=== PATIENT | male | born 1940 | race Caucasian/White ===

== ENCOUNTER 2017-08-19 06:43 | Day surgery (SDC) | payer MEDICARE, BC ==
[2017-08-19] MEDS ORDERED: LIDOCAINE 1% MPF 100MG/10ML STERILE-PAK AMPULE IV ONE (06:44)
[2017-08-19] MEDS ORDERED: EPINEPHRINE 1 MG/ML AMPUL SQ ONE (06:44)
[2017-08-19] MEDS ORDERED: LIDOCAINE 2% MDV (20MG/ML) 20ML VIAL IV ONE ×2 (06:44)
[2017-08-19] MEDS ORDERED: TETRACAINE HCL 0.5% 15 ML OPTH BTL OPTH ONE (06:44)
[2017-08-19] MEDS ORDERED: PROPOFOL 10 MG/ML VIAL IV ONE (06:44)
[2017-08-19] MEDS ORDERED: CIPROFLOXACIN HCL 0.0015 GM, PHENYLEPHRINE HCL 0.05 GM, KETOROLAC TROMETHAMINE 0.000625 GM MC ONE ×5 (10:15)
--- NOTE | 2017-08-19 18:22 | Operative Note ---
DATE OF PROCEDURE: 08/19/17. PREOPERATIVE DIAGNOSIS: Nuclear sclerotic and cortical cataract, left eye. POSTOPERATIVE DIAGNOSIS: Nuclear sclerotic and cortical cataract, left eye. OPERATION: Phacoemulsification of cataractous lens with implantation of intraocular lens. LENS IMPLANT USED: Nick Model PCB00 + 21.5 diopters. COMPLICATIONS: None. PROCEDURE IN DETAIL: Following a retrobulbar and facial block, the patient was prepped and draped in the usual fashion for eye surgery. A lid speculum was placed in the left eye after which a 2.4 mm tunnel wound was placed at the temporal limbus and dissected into clear cornea. A paracentesis was placed at 2 o'clock hours to the left and right of the initial incision and the chamber deepened with Viscoelastic. The keratome was then used to enter the anterior chamber after which the continuous circular capsulorrhexis was accomplished without difficulty using a bent needle and a Utrata forceps. Hydrodissection and hydrodelineation of the lens was performed after which the nucleus of the lens was removed using the Phaco handpiece in the [id number] technique. The residual cortical material was irrigated and aspirated from the eye after which the bag and chamber were re-examined. The bag was re-inflated with Viscoelastic and the intraocular lens injected into the capsular bag where it centered well. The Viscoelastic was then copiously irrigated and aspirated from the eye after which the temporal tunnel wound and paracentesis were hydrated and the wounds were examined. They were noted to be watertight. The lid speculum was removed from the eye and the eye patched and shielded. The patient was transferred to the recovery room in satisfactory condition and given an appointment to be reexamined in the clinic later today or as directed by Dr. Killian. JOB NUMBER: [id number] MTDD
== END 2017-08-19 09:36 | disposition home or self-care (01) ==
LOC: SUR 06:43
PROVIDERS: ATTEND Ophthalmology
DX: H25.12 Age-related nuclear cataract, left eye (principal)
CPT/HCPCS: J0171; J3490

== ENCOUNTER 2017-09-02 07:48 | Day surgery (SDC) | payer MEDICARE, BC ==
[2017-09-02] MEDS ORDERED: LIDOCAINE 1% MPF 100MG/10ML STERILE-PAK AMPULE IV ONE (07:49)
[2017-09-02] MEDS ORDERED: PROPOFOL 10 MG/ML VIAL IV ONE (07:49)
[2017-09-02] MEDS ORDERED: EPINEPHRINE 1 MG/ML AMPUL SQ ONE (07:49)
[2017-09-02] MEDS ORDERED: LIDOCAINE 2% MDV (20MG/ML) 20ML VIAL IV ONE ×2 (07:49)
[2017-09-02] MEDS ORDERED: TETRACAINE HCL 0.5% 15 ML OPTH BTL OPTH ONE (07:49)
[2017-09-02] MEDS ORDERED: NEOMYCIN/POLY./DEXAM OPTH OINT OPTH ONE (07:49)
[2017-09-02] MEDS ORDERED: TETRACAINE HCL 0.5% OPTH 2ML SOLU OPTH ONE (07:49)
[2017-09-02] MEDS ORDERED: CIPROFLOXACIN HCL 0.0015 GM, PHENYLEPHRINE HCL 0.05 GM, KETOROLAC TROMETHAMINE 0.000625 GM MC ONE ×5 (11:30)
--- NOTE | 2017-09-03 06:37 | OP NOTE CHAMES ---
DATE OF PROCEDURE: 09/02/2017. PREOPERATIVE DIAGNOSIS: Nuclear sclerotic cataract, right eye. POSTOPERATIVE DIAGNOSIS: Nuclear sclerotic cataract, right eye. OPERATION: Phacoemulsification of cataractous lens with implantation of intraocular lens. LENS IMPLANT USED: Nick Model PCB00 + 21.0 diopters. COMPLICATIONS: None. PROCEDURE IN DETAIL: Following a retrobulbar and facial block, the patient was prepped and draped in the usual fashion for eye surgery. A lid speculum was placed in the right eye after which a 2.4 mm tunnel wound was placed at the temporal limbus and dissected into clear cornea. A paracentesis was placed at 2 oclock hours to the left and right of the initial incision and the chamber deepened with Viscoelastic. The keratome was then used to enter the anterior chamber after which the continuous circular capsulorrhexis was accomplished without difficulty using a bent needle and a Utrata forceps. Hydrodissection and hydrodelineation of the lens was performed after which the nucleus of the lens was removed using the Phaco handpiece in the [id number] technique. The residual cortical material was irrigated and aspirated from the eye after which the bag and chamber were re-examined. The bag was re-inflated with Viscoelastic and the intraocular lens injected into the capsular bag where it centered well. The Viscoelastic was then copiously irrigated and aspirated from the eye after which the temporal tunnel wound and paracentesis were hydrated and the wounds were examined. They were noted to be watertight. The lid speculum was removed from the eye and the eye patched and shielded. The patient was transferred to the recovery room in satisfactory condition and given an appointment to be reexamined in the clinic later today or as directed by Dr. Killian. JOB NUMBER: [id number] [facility]
== END 2017-09-02 10:35 | disposition home or self-care (01) ==
LOC: SUR 07:48
PROVIDERS: ATTEND Ophthalmology
DX: H25.11 Age-related nuclear cataract, right eye (principal)
CPT/HCPCS: J0171; J3490

== ENCOUNTER 2018-05-03 06:09 | Day surgery (SDC) | payer MEDICARE, BC ==
[~2018-05-03 06:09] MED LIST: ACETAMINOPHEN 1,000 MG/100 ML BTL IV ONE; CEFAZOLIN 2 Gram 2 GM/50 ML BAG IVPB ONE
[2018-05-03] MEDS ORDERED: LIDOCAINE 2% MDV (20MG/ML) 20ML VIAL IV ONE (06:10)
[2018-05-03] MEDS ORDERED: MIDAZOLAM HCL 2MG/2ML VIAL IV ONE (06:10)
[2018-05-03] MEDS ORDERED: DEXAMETHASONE 4 MG/ML 1ML VIAL IVP ONE (06:10)
[2018-05-03] MEDS ORDERED: ONDANSETRON HCL IV 4 MG/2 ML VIAL IVP ONE (06:10)
[2018-05-03] MEDS ORDERED: PROPOFOL 10 MG/ML VIAL IV ONE (06:10)
[2018-05-03] MEDS ORDERED: EPHEDRINE SULFATE 50 MG/ML ML IV ONE (06:10)
[2018-05-03] MEDS ORDERED: ATROPINE SULFATE 0.4 MG/ML 20ML IVP ONE (06:10)
[2018-05-03] MEDS ORDERED: SEVOFLURANE 250 ML INH ONE (06:10)
[2018-05-03] MEDS ORDERED: ROPIVACAINE HCL (NAROPIN) /PF 5MG/ML 20ML VIAL IV ONE (06:10)
[2018-05-03] MEDS ORDERED: FENTANYL PF 100MCG/2ML VIAL IV ONE (06:10)
--- NOTE | 2018-05-04 12:31 | Operative Note ---
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 OPERATION: Hemiarthroplasty of the left thumb. DESCRIPTION OF PROCEDURE: This 77-year-old male was taken to the operating room and placed in the supine position on the operating room table. General anesthesia was induced and the left upper extremity was elevated. It was prepped with Hibiclens and draped in the usual sterile fashion. It was exsanguinated and the tourniquet inflated to 250 mmHg. An incision was made on the dorsal surface of the 1st metacarpal dissecting down to approximately 1.5 cm from the tip of the radial styloid. Dissection was carried down through the skin and subcutaneous tissue. A branch of the radial nerve was identified and retracted in a dorsal direction. The extensor was retracted palmarly and an incision was made in the periosteum and joint capsule of the trapezial metacarpal joint. Dissection was carried down through the periosteum to the bone and subperiosteal elevation as carried out circumferentially around the base of the 1st metacarpal. This allowed us to free the bone and to move it freely out of the way. We checked the alignment of a K-wire placed in the metacarpal to make sure we had appropriate alignment. Subsequently, the cutting guide was placed and approximately 3-4 mm cut was made on the proximal end of the 1st metacarpal using the guide. A wafer of bone was removed. We were then able to retract this safely out of the way. We placed a guide, first the small and then the medium over the trapezium. The small seemed slightly too small but the medium seemed too large and because of the sloping of his trapezium, I was worried about the bone on the dorsal surface. Therefore, we medialized the hole very slightly to make the socket in the trapezium slightly more medial. We elected to use the small. Subsequently the reamer was used to ream the bone. The image intensifier had been used to check the position and alignment of the guide pin in the trapezium prior to reaming. We then removed osteophytes which were present medially on the trapezium and then medially on the metacarpal as well. Very large osteophytes were present on the medial and palmar surfaces. The broach was used. We started with a 10 and a 20 and finally a 30 broach was used. The trial was placed and it was reduced. It was taken through range of motion, felt to be stable. The wound was irrigated with lactated Ringer's solution after the trial prosthesis had been removed. Subsequently a size 30 small NuGrip prosthesis was impacted into place. Again the joint was reduced and seen to be stable. We then repaired the capsule using 0 Vicryl. Subcutaneous tissue was closed with 4-0 Vicryl and the skin with a running 4-0 nylon suture. Sterile dressings were applied and the patient taken to the recovery room in satisfactory condition after plaster splint had been applied. GROSS PATHOLOGY: This patient had full-thickness articular cartilage loss noted on both the metacarpal and trapezial articular surfaces. There were osteophytes present medially both on the trapezium medially and palmarly both on the trapezium and the metacarpal. The radial artery was identified and protected during the operative procedure. The wound was copiously irrigated prior to closure removing bony debris from the joint. CC: DO BIB Castillo
== END 2018-05-03 11:00 | disposition home or self-care (01) ==
LOC: SUR 06:09
PROVIDERS: ATTEND Orthopaedic Surgery
DX: M18.9 Osteoarthritis of first carpometacarpal joint, unspecified (principal); I10 Essential (primary) hypertension; G47.33 Obstructive sleep apnea (adult) (pediatric)
CPT/HCPCS: 76000; J2405

== ENCOUNTER 2018-07-07 11:53 | Day surgery (SDC) | payer MEDICARE, BC ==
[2018-07-07] MEDS ORDERED: LIDOCAINE 2% MDV (20MG/ML) 20ML VIAL IV ONE (11:54)
[2018-07-07] MEDS ORDERED: PROPOFOL 10 MG/ML VIAL IV ONE (11:54)
--- NOTE | 2018-07-08 08:40 | Operative Note ---
DATE OF SURGERY: OPERATION: COLONOSCOPY with cold snare and hot snare polypectomies. PREOPERATIVE DIAGNOSIS: Personal history of colon polyps. POSTOPERATIVE DIAGNOSES: 1. Severe sigmoid diverticulosis. 2. Sigmoid polyp. 3. Cecal polyp. PROCEDURE: After informed consent was obtained from the patient, he was placed in the left lateral decubitus position in the endoscopy suite, sedated and monitored by the department of anesthesia. Digital rectal exam was unremarkable. A well-lubricated [id number] colonoscope was inserted into the rectum and advanced to the cecum. Preparation quality was good. The cecum revealed a 6 mm sessile polyp removed in piecemeal fashion with a cold snare. Minimal bleeding was noted. The polyp was retrieved. The remainder of the cecum, ascending colon, transverse colon, and descending colon were unremarkable. The sigmoid colon revealed severe diverticular changes. In the distal sigmoid colon, there was noted to be a somewhat sessile polyp approximately 6-7 mm in diameter removed with a polypectomy snare and ERBE Endocut current. No bleeding was noted at the site. Photographs were taken. The polyps was retrieved. J-turn views of the anorectum and forward views of the rectum were unrevealing. The endoscope was straightened, the rectal ampulla deflated, and the endoscope was removed. RECOMMENDATIONS: The patient should follow a soft low-fiber diet for the next 2 weeks and a high-fiber diet thereafter. He will require repeat exam most likely in 3 years or perhaps 5 years for continued surveillance. As always, thank you for allowing me to participate in the healthcare of your patients. CC: DO BIB Castillo
== END 2018-07-07 13:53 | disposition home or self-care (01) ==
LOC: HOP 11:53
PROVIDERS: ATTEND Internal Medicine Gastroenterology
DX: Z12.11 Encounter for screening for malignant neoplasm of colon (principal); Z86.010 Personal history of colon polyps; K57.30 Diverticulosis of large intestine without perforation or abscess without bleeding; D12.5 Benign neoplasm of sigmoid colon; D12.0 Benign neoplasm of cecum; I10 Essential (primary) hypertension